=== PATIENT | female | born 1975 | race Caucasian/White ===

== ENCOUNTER 2021-02-25 07:45 | Emergency (ER) | payer OTHER ==
[~2021-02-25 07:45] MED LIST: ADMELOG100 UNIT/1 SQ; BASAGLAR K100 UNIT/1 SQ; CELEXA20 MG PO; DESYREL 50 MG T50 MG PO; FISH OIL 1,0001 EACH PO; GLUCOPHAGE1000 MG PO; LIPITOR TAB 2020 MG PO; PRINIVIL5 MG PO; REGLAN10 MG PO; ZANTAC150 MG PO
== END 2021-02-25 09:05 | disposition home or self-care (01) ==
LOC: ER1 07:45
DX: S46.012A Strain of muscle(s) and tendon(s) of the rotator cuff of left shoulder, initial encounter (principal); E11.9 Type 2 diabetes mellitus without complications; X50.9XXA Other and unspecified overexertion or strenuous movements or postures, initial encounter
CPT/HCPCS: 73030; 96372; 99283; J1885

== ENCOUNTER → 2021-04-05 | Outpatient (CLI) | payer OTHER | LOC: HEART 5 15:06 | DX: R00.2 Palpitations (principal) ==

== ENCOUNTER 2021-11-09 12:34 | Emergency (ER) | payer OTHER ==
[2021-11-09 13:22] LABS: HEMOGLOBIN 13.4 gm/dl (12.3-15.3); RED BLOOD COUNT 4.63 M/UL (4.00-5.10); WHITE BLOOD COUNT 13.9 K/UL (4.5-11.0)
[2021-11-09 13:55] LABS: BUN/CREATININE RATIO 26 (0-10)
[2021-11-09] MEDS ORDERED: OMNICEF 300 MG300 MG PO (17:31)
== END 2021-11-09 17:49 | disposition home or self-care (01) ==
LOC: ER1 12:34
PROVIDERS: Emergency Medicine
DX: E86.0 Dehydration (principal); I95.9 Hypotension, unspecified; N39.0 Urinary tract infection, site not specified; E11.9 Type 2 diabetes mellitus without complications
CPT/HCPCS: 71045; 80053; 81001; 82550; 82553; 82962; 83605; 84484; 85025; 87040; 87086; 93005; 96374; 99285; J0696

== ENCOUNTER → 2021-11-19 | Outpatient (CLI) | payer OTHER ==
[~2021-11-19] MED LIST changes: +OMNICEF 300 MG300 MG PO
== END ==
LOC: KOH-I 15:34
DX: R91.1 Solitary pulmonary nodule (principal)
CPT/HCPCS: 71250